=== PATIENT | male | born 1970 | race Caucasian/White ===

== ENCOUNTER 2022-01-27 13:11 | Inpatient (IN) | payer SELFPAY ==
[2022-01-27] MEDS ORDERED: Ketorolac 30 MG/ML SDV IVPUSH ONE (13:27)
[2022-01-27] MEDS ORDERED: Ondansetron 4 MG/2 ML SDV IVPUSH ONE (13:27)
[2022-01-27] MEDS ORDERED: Sodium Chloride 0.9% 1,000 ML IV ONE ×2 (13:27→13:29)
[2022-01-27] MEDS ORDERED: Acetaminophen 500 MG Tab PO ONE (13:29)
[2022-01-27] MEDS ORDERED: Piperacillin/Tazobactam 3.375 GM in Sodium Chloride 0.9% 50 ML IV ONE (13:47)
[2022-01-27] MEDS ORDERED: Piperacillin/Tazobactam 4.5 GM in Sodium Chloride 0.9% 100 ML IV ONE (14:00)
[2022-01-27] MEDS ORDERED: VANCOmycin 2 GM/400 ML 2 GM in Premix Bag 1 BAG IV ONE (14:15)
[2022-01-27 14:21] LABS: CARBON DIOXIDE,CO2 25.8 mmol/L (21.0-32.0); POTASSIUM,K 4.1 mmol/L (3.5-5.1)
[2022-01-27 14:31] LABS: ESTIMATED GFR 39.7 ml/min
[2022-01-27] MEDS ORDERED: Meropenem 2 GM in Sodium Chloride 0.9% 100 ML IV ONE (14:32)
[2022-01-27 15:01] LABS: CORONAVIRUS COVID-19 NAA NEGATIVE (NEGATIVE); INFLUENZA A NAA NEGATIVE (NEGATIVE); INFLUENZA B NAA NEGATIVE (NEGATIVE)
[2022-01-27] MEDS ORDERED: Sodium Chloride 0.9% 1,000 ML IV SCH (16:30)
[2022-01-27] MEDS ORDERED: Ondansetron 4 MG/2 ML SDV IVPUSH PRN (20:52)
[2022-01-27] MEDS ORDERED: Piperacillin/Tazobactam 3.375 GM in Sodium Chloride 0.9% 50 ML IV SCH (21:00)
[2022-01-27] MEDS: Lactated Ringers 1,000 ML IV SCH (22:57)
[2022-01-27] MEDS: Heparin Sodium 5,000 Units/ML Vial SUBCUT SCH (23:20)
[2022-01-27] MEDS: Acetaminophen 325 MG Tab PO PRN (23:22)
[2022-01-28] MEDS: Morphine 2 MG/ML SYRINGE IVPUSH PRN ×5 (02:09→23:51)
[2022-01-28] MEDS: VANCOmycin 2 GM/400 ML 2 GM in Premix Bag 1 BAG IV SCH ×2 (03:25→14:43)
[2022-01-28 04:02] LABS: CARBON DIOXIDE,CO2 28.2 mmol/L (21.0-32.0)
[2022-01-28 04:11] LABS: ESTIMATED GFR 33.2 ml/min
[2022-01-28] MEDS: Heparin Sodium 5,000 Units/ML Vial SUBCUT SCH ×3 (05:48→21:51)
[2022-01-28] MEDS: Meropenem Premix 50 ML IV SCH ×3 (06:54→23:10)
[2022-01-28] MEDS ORDERED: Meropenem 1 GM in Sodium Chloride 0.9% 100 ML IV SCH (07:00)
[2022-01-28] MEDS ORDERED: 50% Dextrose in Water 50 ML Syringe IVPUSH PRN (07:59)
[2022-01-28] MEDS ORDERED: Glucagon,Human Recombinant 1 MG Vial IM PRN (07:59)
[2022-01-28] MEDS ORDERED: Pantoprazole 40 MG in Sodium Chloride 0.9% 10 ML IVPUSH SCH (09:00)
[2022-01-28] MEDS: Insulin Aspart 100 Units/ML 3 ML Pen SUBCUT SCH ×3 (09:14→17:22)
[2022-01-28] MEDS: Pantoprazole 40 MG Tab.CR PO SCH (09:15)
[2022-01-28] MEDS: Acetaminophen 325 MG Tab PO PRN ×3 (09:15→21:49)
[2022-01-28] MEDS ORDERED: Magnesium Sulfate/Water 2 GM in Premix Bag 1 BAG IV ONE (10:23)
[2022-01-28] MEDS: Lactated Ringers 1,000 ML IV SCH (10:23)
[2022-01-28 11:59] LABS: HEMOGLOBIN A1C 8.6 %
[2022-01-29] MEDS: Lactated Ringers 1,000 ML IV SCH ×2 (00:18→11:18)
[2022-01-29] MEDS: VANCOmycin 2 GM/400 ML 2 GM in Premix Bag 1 BAG IV SCH (03:44)
[2022-01-29] MEDS: Morphine 2 MG/ML SYRINGE IVPUSH PRN ×5 (03:54→22:04)
[2022-01-29] MEDS: Heparin Sodium 5,000 Units/ML Vial SUBCUT SCH ×3 (04:02→20:30)
[2022-01-29] MEDS: Meropenem Premix 50 ML IV SCH ×3 (06:31→22:05)
[2022-01-29] MEDS: Insulin Aspart 100 Units/ML 3 ML Pen SUBCUT SCH ×3 (07:55→17:57)
[2022-01-29 07:59] LABS: BLOOD UREA NITROGEN,BUN 21 mg/dL (7.0-18.0); CARBON DIOXIDE,CO2 24.8 mmol/L (21.0-32.0); CHLORIDE,CL 96 mmol/L (98-107); GLUCOSE RANDOM 143 mg/dL (74-106); POTASSIUM,K 3.7 mmol/L (3.5-5.1); SODIUM,NA 133 mmol/L (136-148)
[2022-01-29 08:00] LABS: ESTIMATED GFR > 60.0 ml/min
[2022-01-29] MEDS: Pantoprazole 40 MG Tab.CR PO SCH (08:01)
[2022-01-29] MEDS: Albuterol/Ipratropium 3.0-0.5 MG/3 ML Neb Soln NEB PRN (17:05)
[2022-01-29] MEDS ORDERED: Magnesium Sulfate/Water 2 GM in Premix Bag 1 BAG IV ONE (19:51)
[2022-01-29] MEDS: Ezetimibe 10 MG Tab PO SCH (20:30)
[2022-01-29] MEDS: Acetaminophen 325 MG Tab PO PRN (20:33)
[2022-01-30] MEDS: Morphine 2 MG/ML SYRINGE IVPUSH PRN ×4 (01:58→21:00)
[2022-01-30] MEDS: Heparin Sodium 5,000 Units/ML Vial SUBCUT SCH ×3 (04:15→20:59)
[2022-01-30] MEDS: Albuterol/Ipratropium 3.0-0.5 MG/3 ML Neb Soln NEB PRN ×3 (05:30→20:59)
[2022-01-30 06:07] LABS: BLOOD UREA NITROGEN,BUN 14 mg/dL (7.0-18.0); CHLORIDE,CL 100 mmol/L (98-107); GLUCOSE RANDOM 159 mg/dL (74-106); POTASSIUM,K 3.8 mmol/L (3.5-5.1); SODIUM,NA 135 mmol/L (136-148)
[2022-01-30 06:08] LABS: ESTIMATED GFR > 60.0 ml/min
[2022-01-30] MEDS: Meropenem Premix 50 ML IV SCH ×3 (06:28→22:33)
[2022-01-30] MEDS: Insulin Aspart 100 Units/ML 3 ML Pen SUBCUT SCH ×3 (06:59→17:26)
[2022-01-30] MEDS: Allopurinol 300 MG Tab PO SCH (08:57)
[2022-01-30] MEDS: Pantoprazole 40 MG Tab.CR PO SCH (08:57)
[2022-01-30] MEDS: Aspirin 81 MG Tab.Chew PO SCH (08:57)
[2022-01-30] MEDS: Lisinopril/Hydrochlorothiazide 10-12.5 MG Tab PO SCH (08:57)
[2022-01-30] MEDS: VANCOmycin 1.5 GM/300 ML 1.5 GM in Premix Bag 1 BAG IV SCH (14:45)
[2022-01-30] MEDS: Ezetimibe 10 MG Tab PO SCH (20:59)
[2022-01-31] MEDS: VANCOmycin 1.5 GM/300 ML 1.5 GM in Premix Bag 1 BAG IV SCH (01:15)
[2022-01-31] MEDS: Albuterol/Ipratropium 3.0-0.5 MG/3 ML Neb Soln NEB PRN ×3 (03:00→16:52)
[2022-01-31] MEDS: Acetaminophen 325 MG Tab PO PRN (04:47)
[2022-01-31] MEDS: Heparin Sodium 5,000 Units/ML Vial SUBCUT SCH ×3 (04:48→21:20)
[2022-01-31] MEDS: Meropenem Premix 50 ML IV SCH ×3 (06:20→23:20)
[2022-01-31 07:48] LABS: BLOOD UREA NITROGEN,BUN 13 mg/dL (7.0-18.0); CARBON DIOXIDE,CO2 27.1 mmol/L (21.0-32.0); CHLORIDE,CL 100 mmol/L (98-107); GLUCOSE RANDOM 167 mg/dL (74-106); POTASSIUM,K 3.6 mmol/L (3.5-5.1); SODIUM,NA 135 mmol/L (136-148)
[2022-01-31 07:51] LABS: ESTIMATED GFR > 60.0 ml/min
[2022-01-31] MEDS: Insulin Aspart 100 Units/ML 3 ML Pen SUBCUT SCH ×3 (08:47→17:45)
[2022-01-31] MEDS: Aspirin 81 MG Tab.Chew PO SCH (08:55)
[2022-01-31] MEDS: Allopurinol 300 MG Tab PO SCH (08:56)
[2022-01-31] MEDS: Lisinopril/Hydrochlorothiazide 10-12.5 MG Tab PO SCH (08:56)
[2022-01-31] MEDS: Pantoprazole 40 MG Tab.CR PO SCH (08:56)
[2022-01-31] MEDS: cloNIDine 0.1 MG Tab PO SCH (09:46)
[2022-01-31] MEDS: VANCOmycin 1.25 GM/250 ML 250 ML IV SCH ×2 (14:30→21:21)
[2022-01-31] MEDS: Ezetimibe 10 MG Tab PO SCH (21:20)
[2022-01-31] MEDS: Pravastatin 40 MG Tab PO SCH (21:20)
[2022-02-01] MEDS: Albuterol/Ipratropium 3.0-0.5 MG/3 ML Neb Soln NEB PRN ×2 (02:46→21:06)
[2022-02-01] MEDS: Heparin Sodium 5,000 Units/ML Vial SUBCUT SCH ×3 (05:18→21:33)
[2022-02-01] MEDS: VANCOmycin 1.25 GM/250 ML 250 ML IV SCH ×3 (05:18→23:06)
[2022-02-01] MEDS: Meropenem Premix 50 ML IV SCH (06:53)
[2022-02-01] MEDS: Insulin Aspart 100 Units/ML 3 ML Pen SUBCUT SCH ×3 (07:45→17:30)
[2022-02-01] MEDS ORDERED: Meropenem Premix 50 ML IV ONE (07:51)
[2022-02-01 08:06] LABS: BLOOD UREA NITROGEN,BUN 15 mg/dL (7.0-18.0); CARBON DIOXIDE,CO2 26.2 mmol/L (21.0-32.0); CHLORIDE,CL 100 mmol/L (98-107); ESTIMATED GFR > 60.0 ml/min; GLUCOSE RANDOM 176 mg/dL (74-106); POTASSIUM,K 3.7 mmol/L (3.5-5.1); SODIUM,NA 137 mmol/L (136-148)
[2022-02-01] MEDS: Lisinopril/Hydrochlorothiazide 10-12.5 MG Tab PO SCH (08:43)
[2022-02-01] MEDS: cloNIDine 0.1 MG Tab PO SCH (08:43)
[2022-02-01] MEDS: Allopurinol 300 MG Tab PO SCH (08:43)
[2022-02-01] MEDS: Aspirin 81 MG Tab.Chew PO SCH (08:43)
[2022-02-01] MEDS: Pantoprazole 40 MG Tab.CR PO SCH (08:43)
[2022-02-01] MEDS: Meropenem 2 GM in Sodium Chloride 0.9% 100 ML IV SCH ×2 (14:13→21:33)
[2022-02-01] MEDS: Ezetimibe 10 MG Tab PO SCH (21:33)
[2022-02-01] MEDS: Pravastatin 40 MG Tab PO SCH (21:33)
[2022-02-02] MEDS: Acetaminophen 325 MG Tab PO PRN (00:27)
[2022-02-02] MEDS: Meropenem 2 GM in Sodium Chloride 0.9% 100 ML IV SCH ×2 (05:16→14:03)
[2022-02-02] MEDS: Heparin Sodium 5,000 Units/ML Vial SUBCUT SCH ×2 (05:16→12:09)
[2022-02-02] MEDS: VANCOmycin 1.25 GM/250 ML 250 ML IV SCH (06:42)
[2022-02-02] MEDS: Albuterol/Ipratropium 3.0-0.5 MG/3 ML Neb Soln NEB PRN (06:49)
[2022-02-02 07:18] LABS: POTASSIUM,K 3.9 mmol/L (3.5-5.1)
[2022-02-02] MEDS: Insulin Aspart 100 Units/ML 3 ML Pen SUBCUT SCH ×3 (08:03→17:16)
[2022-02-02] MEDS: Aspirin 81 MG Tab.Chew PO SCH (09:22)
[2022-02-02] MEDS: cloNIDine 0.1 MG Tab PO SCH (09:23)
[2022-02-02] MEDS: Pantoprazole 40 MG Tab.CR PO SCH (09:23)
[2022-02-02] MEDS: Lisinopril/Hydrochlorothiazide 10-12.5 MG Tab PO SCH (09:23)
[2022-02-02] MEDS: Allopurinol 300 MG Tab PO SCH (09:23)
== END 2022-02-02 19:02 | DRG 872 ==
LOC: MW.ED 13:11 → MW.MS 20:16
PROVIDERS: ADMIT Student in an Organized Health Care Education/Training Program; ATTEND Student in an Organized Health Care Education/Training Program
PROC: XW033N5 Introduction of Meropenem-vaborbactam Anti-infective into Peripheral Vein, Percutaneous Approach, New Technology Group 5 (ICD-10-PCS; principal; 2022-01-27)
DX: A40.9 Streptococcal sepsis, unspecified (principal); Z68.43 Body mass index [BMI] 50.0-59.9, adult; L03.115 Cellulitis of right lower limb; R65.20 Severe sepsis without septic shock; L08.9 Local infection of the skin and subcutaneous tissue, unspecified; E66.01 Morbid (severe) obesity due to excess calories; Z20.822 Contact with and (suspected) exposure to COVID-19; G47.30 Sleep apnea, unspecified; E78.00 Pure hypercholesterolemia, unspecified; E11.9 Type 2 diabetes mellitus without complications; G89.29 Other chronic pain; M54.9 Dorsalgia, unspecified; Z90.5 Acquired absence of kidney; Z88.1 Allergy status to other antibiotic agents; Z88.8 Allergy status to other drugs, medicaments and biological substances; Z79.82 Long term (current) use of aspirin; Z85.528 Personal history of other malignant neoplasm of kidney; Z79.899 Other long term (current) drug therapy; Z90.49 Acquired absence of other specified parts of digestive tract; Z87.891 Personal history of nicotine dependence; Z88.2 Allergy status to sulfonamides
CPT/HCPCS: 0240U; 36415; 71045; 71045-26; 73620-26-RT; 73620-RT; 73700-26-RT; 73700-RT; 74176; 74176-26; 80048; 80053; 80202; 81001; 82947; 83036; 83605; 83690; 83735; 84100; 84484; 85025; 85652; 86140; 87040; 87070; 87077; 87086; 87205; 93005; 93010; 94640; 96365; 96367; 96375; 99221; 99231; 99232; 99239; 99285; 99285-25; A9270-GY; J1644; J1815-GY; J1885; J2185; J2270; J2405; J2543; J3370; J3475; J3490; J7030; J7050; J7120; J7620-GY